=== PATIENT | female | born 1970 | race American Indian/Alaskan Native ===

== ENCOUNTER 2018-12-29 10:03 | Outpatient (CLI) | payer OTHER | END 2018-12-29 10:09 | disposition home or self-care (01) | LOC: SONOGRAMA 10:03 | DX: E04.1 Nontoxic single thyroid nodule (principal) ==

== ENCOUNTER 2020-05-31 12:30 | Outpatient (CLI) | payer OTHER | END 2020-05-31 12:49 | disposition home or self-care (01) | LOC: RAD 12:30 | PROVIDERS: ATTEND Neurological Surgery | DX: E04.1 Nontoxic single thyroid nodule (principal); M43.17 Spondylolisthesis, lumbosacral region ==